=== PATIENT | male | born 1985 | race Caucasian/White ===

== ENCOUNTER 2023-01-26 15:24 | Emergency (ER) | payer OTHER, SELFPAY ==
[2023-01-26] MEDS ORDERED: Dexamethasone 4 mg/ml Vial ONE (16:04)
[2023-01-26] MEDS ORDERED: Dexamethasone 10 MG/ML VIAL ONE (16:07)
== END 2023-01-26 18:10 | disposition home or self-care (01) ==
LOC: CSHERS 15:24
DX: M79.672 Pain in left foot (principal)
CPT/HCPCS: J1100

== ENCOUNTER 2023-05-28 18:21 | Emergency (ER) | payer OTHER ==
[2023-05-28] MEDS ORDERED: Ketorolac Tromethamine 30 MG/ML VIAL ONE (20:50)
== END 2023-05-28 21:00 | disposition home or self-care (01) ==
LOC: CSHERS 18:21
DX: M25.572 Pain in left ankle and joints of left foot (principal); I10 Essential (primary) hypertension; E78.5 Hyperlipidemia, unspecified
CPT/HCPCS: 96372; J1885